=== PATIENT | female | born 1955 | race Caucasian/White ===

== ENCOUNTER 2017-01-06 17:49 | Emergency (ER) | payer MEDICAID ==
[~2017-01-06] VITALS: Ht 167.6 cm; Wt 91.2 kg
[~2017-01-06 17:49] MED LIST: ALBU18HF INH; CYCL7.5T25 PO; IBUP400T PO; LANS15TA5 PO
[2017-01-06] MEDS ORDERED: SODIUM CHLORIDE FLUSH 10ML SYR IVF ONE (18:00)
[2017-01-06] MEDS ORDERED: SODIUM CHLORIDE 0.9% 1,000ML IVBOLUS ONE (18:00)
[2017-01-06] MEDS ORDERED: FAMOTIDINE 20 MG/2 ML IVP ONE (18:00)
[2017-01-06] MEDS ORDERED: ONDANSETRON 2MG/ML, 2ML ONE (18:47)
[2017-01-06] MEDS ORDERED: FAMOTIDINE 20 MG/2 ML ONE (18:47)
[2017-01-06 18:54] LABS: ASPARTATE AMINO TRANSFERASE 6 U/L (15-37); BLOOD UREA NITROGEN 18 mg/dL (7-18)
[2017-01-06] MEDS ORDERED: ONDANSETRON 2MG/ML, 2ML IVPush ONE (19:00)
[2017-01-06] MEDS ORDERED: MAALOX/HYOSCYAMINE/LIDOCAINE 45 ML BOTTLE PO ONE (19:30)
[2017-01-06] MEDS ORDERED: MAALOX/HYOSCYAMINE/LIDOCAINE 45 ML BOTTLE ONE (19:35)
[2017-01-06 21:07] VITALS: BP 146/77
== END 2017-01-06 21:45 | disposition home or self-care (01) ==
LOC: ED 19:15
DX: K29.00 Acute gastritis without bleeding (principal); R10.11 Right upper quadrant pain; R10.13 Epigastric pain
CPT/HCPCS: 36415; 76700; 80053; 81003; 83690; 85025; 86677; 96361; 96374; 96375; 99285; J2405; J7030; S0028

== ENCOUNTER 2017-02-24 07:43 | Emergency (ER) | payer MEDICAID ==
[~2017-02-24] VITALS: Ht 167.6 cm; Wt 93.3 kg
[2017-02-24 07:47] VITALS: BP 148/83
== END 2017-02-24 08:32 | disposition home or self-care (01) ==
LOC: ED 08:15
DX: J45.909 Unspecified asthma, uncomplicated (principal); J02.9 Acute pharyngitis, unspecified; E11.9 Type 2 diabetes mellitus without complications; Z87.891 Personal history of nicotine dependence; Z85.3 Personal history of malignant neoplasm of breast
CPT/HCPCS: 93005; 99283

== ENCOUNTER 2017-06-16 02:59 | Observation (INO) | payer MEDICAID, OTHER ==
[~2017-06-16] VITALS: Ht 167.6 cm; Wt 97.6 kg
[~2017-06-16 02:59] MED LIST changes: +IBUP-1221 PO; -IBUP400T PO; -LANS15TA5 PO; +LANS15TA6 PO
[2017-06-16] MEDS ORDERED: METF500T4 PO (03:37)
[2017-06-16] MEDS ORDERED: ATOR10TA9 PO (03:38)
[2017-06-16] MEDS ORDERED: GABA-827 PO (03:39)
[2017-06-16] MEDS ORDERED: LISI2.5T PO (03:39)
[2017-06-16 03:45] LABS: HEMATOCRIT 44.8 % (34.6-47.8); WHITE BLOOD COUNT 7.6 x10^3/uL (3.4-10)
[2017-06-16 03:57] LABS: ASPARTATE AMINO TRANSFERASE 12 U/L (15-37); BLOOD UREA NITROGEN 19 mg/dL (7-18)
[2017-06-16 04:03] LABS: IS PT STATUS REG ER OR PRE ER? YES
[2017-06-16] MEDS ORDERED: ONDANSETRON 2MG/ML, 2ML IVPush ONE (05:30)
[2017-06-16] MEDS ORDERED: MORPHINE SULFATE 4 MG/ML, 1ML IVPush PRN (05:30)
[2017-06-16] MEDS ORDERED: ONDANSETRON ODT 4 MG ONE (05:38)
[2017-06-16] MEDS ORDERED: OXYcodone/APAP 5/325MG TABLET ONE (05:39)
[2017-06-16] MEDS ORDERED: OXYcodone/APAP 5/325MG TABLET PO ONE (06:00)
[2017-06-16] MEDS ORDERED: ONDANSETRON ODT 4 MG PO ONE (06:00)
[2017-06-16 08:53] VITALS: BP 123/81
[2017-06-16] MEDS ORDERED: DOCUSATE 100 MG CAPSULE PO PRN (10:00)
[2017-06-16] MEDS ORDERED: LABETALOL 5MG/ML, 20ML IVPush PRN (10:00)
[2017-06-16] MEDS ORDERED: morphine SULFATE 10 MG/ML, 1ML IVPush PRN (10:00)
[2017-06-16] MEDS ORDERED: BISACODYL 10 MG SUPP PR PRN (10:00)
[2017-06-16] MEDS ORDERED: ONDANSETRON 2MG/ML, 2ML IVPush PRN (10:00)
[2017-06-16] MEDS ORDERED: ONDANSETRON ODT 4 MG PO PRN (10:00)
[2017-06-16] MEDS ORDERED: ENALAPRILAT 1.25 MG/ML, 2ML IVPush PRN (10:00)
[2017-06-16] MEDS ORDERED: ALBUTEROL HFA 90 MCG/SPRAY INH SCH (10:00)
[2017-06-16] MEDS ORDERED: GABAPENTIN 400 MG CAPSULE ONE (10:02)
[2017-06-16] MEDS: GABAPENTIN 400 MG CAPSULE PO SCH ×3 (10:26→21:52)
[2017-06-16] MEDS: SODIUM CHLORIDE 0.9% 1,000 ML IV SCH ×2 (10:27→21:52)
[2017-06-16 10:54] LABS: IS PT STATUS REG ER OR PRE ER? NO
[2017-06-16 16:01] LABS: IS PT STATUS REG ER OR PRE ER? NO
[2017-06-16 16:59] VITALS: BP 148/78
[2017-06-16] MEDS: ACETAMINOPHEN 325 MG TABLET PO PRN ×2 (17:47→21:53)
[2017-06-16 20:32] VITALS: BP 131/78
[2017-06-16] MEDS ORDERED: ATORVASTATIN 10 MG TABLET PO SCH (21:00)
[2017-06-17 02:21] VITALS: BP 135/82
[2017-06-17 05:47] LABS: HEMATOCRIT 44.6 % (34.6-47.8); HEMOGLOBIN 15.3 g/dL (11.7-16.4); WHITE BLOOD COUNT 6.6 x10^3/uL (3.4-10)
[2017-06-17 05:53] LABS: BLOOD UREA NITROGEN 13 mg/dL (7-18)
[2017-06-17 05:57] LABS: ASPARTATE AMINO TRANSFERASE 13 U/L (15-37)
[2017-06-17] MEDS: GABAPENTIN 400 MG CAPSULE PO SCH ×3 (06:14→15:50)
[2017-06-17] MEDS: SODIUM CHLORIDE 0.9% 1,000 ML IV SCH (06:15)
[2017-06-17] MEDS: ACETAMINOPHEN 325 MG TABLET PO PRN (07:37)
[2017-06-17 07:44] VITALS: BP 123/78
[2017-06-17] MEDS ORDERED: REGADENOSON 0.4 MG/5 ML SYRINGE ONE (08:07)
[2017-06-17] MEDS ORDERED: LISINOPRIL 5 MG TABLET PO SCH (09:00)
[2017-06-17 15:07] VITALS: BP 132/80
[2017-06-17] MEDS ORDERED: FLU VACC QS2017-18 (36MOS+) UP/PF 0.5 ML IM-VACC ONE (17:00)
[2017-06-17] MEDS ORDERED: PNEUMOCOCCAL 23 VACCINE IM-VACC ONE (17:00)
== END 2017-06-17 18:00 | disposition home or self-care (01) ==
LOC: ED 06:41 → EDIP 06:42 → INTOOBSV 06:42 → ED 07:02 → 5SO 08:44
PROVIDERS: ADMIT Internal Medicine; ATTEND Internal Medicine
DX: R07.89 Other chest pain (principal); E11.42 Type 2 diabetes mellitus with diabetic polyneuropathy; E78.5 Hyperlipidemia, unspecified; E11.65 Type 2 diabetes mellitus with hyperglycemia; J44.9 Chronic obstructive pulmonary disease, unspecified; E66.9 Obesity, unspecified; Z85.3 Personal history of malignant neoplasm of breast; Z87.891 Personal history of nicotine dependence; Z82.49 Family history of ischemic heart disease and other diseases of the circulatory system; Z81.8 Family history of other mental and behavioral disorders; Z80.3 Family history of malignant neoplasm of breast; F17.200 Nicotine dependence, unspecified, uncomplicated
CPT/HCPCS: 36415; 71010; 78452; 80053; 82962; 83735; 84100; 84439; 84443; 84484; 85025; 85379; 90471; 90472; 90686; 90732; 93005; 93017; 93306; 96360; 96361; 99285; A9502; C9898; G0378; J2785; J7030; Q0162

== ENCOUNTER 2018-04-08 15:06 | Emergency (ER) | payer MEDICAID, OTHER ==
[~2018-04-08] VITALS: Ht 167.6 cm; Wt 99.4 kg
[~2018-04-08 15:06] MED LIST changes: +ATOR10TA9 PO; +GABA-827 PO; +LISI2.5T PO; +METF500T17 PO
[2018-04-08 15:16] VITALS: BP 140/85
[2018-04-08] MEDS ORDERED: KETOROLAC 30 MG/1 ML ONE (17:15)
[2018-04-08] MEDS ORDERED: KETOROLAC 30 MG/1 ML IM ONE (17:30)
== END 2018-04-08 17:29 | disposition home or self-care (01) ==
LOC: ED 17:15
DX: M54.42 Lumbago with sciatica, left side (principal); M76.62 Achilles tendinitis, left leg; E11.9 Type 2 diabetes mellitus without complications; Z85.3 Personal history of malignant neoplasm of breast
CPT/HCPCS: 72110; 73610; 96372; 99284; J1885

== ENCOUNTER 2018-05-15 12:55 | Observation (INO) | payer OTHER ==
[~2018-05-15] VITALS: Ht 167.6 cm; Wt 100.3 kg
[2018-05-15 14:00] LABS: BASOPHILS # (AUTO) 0.04 x10^3/uL (0-0.1); BASOPHILS % (AUTO) 1 % (0-1); EOSINOPHILS # (AUTO) 0.17 x10^3/uL (0-0.4); EOSINOPHILS % (AUTO) 2 % (1-7); LYMPHOCYTES % (AUTO) 33 % (22-44); MD NO; MEAN CORPUSCULAR HEMOGLOBIN 29.8 pg (27.0-34.8); MEAN CORPUSCULAR HGB CONC 33.6 g/dL (32.4-35.8); MEAN CORPUSCULAR VOLUME 88.8 fL (80-100); MEAN PLATELET VOLUME 9.5 fL (7.4-10.4); MONOCYTES # (AUTO) 0.72 x10^3/uL (0.2-0.8); MONOCYTES % (AUTO) 8 % (2-9); NEUTROPHILS # (AUTO) 5.36 x10^3/uL (1.8-6.8); NEUTROPHILS % (AUTO) 57 % (42-75); PLATELET COUNT 237 x10^3/uL (130-400); RED CELL DISTRIBUTION WIDTH 13.7 % (9.6-15.2)
[2018-05-15 14:10] LABS: INTERNATIONAL NORMALIZED RATIO 0.97 (0.93-1.1)
[2018-05-15 14:13] LABS: ANION GAP 8 mmol/L (5-15); CALCIUM 9.3 mg/dL (8.5-10.1); CHLORIDE 108 mmol/L (98-107); CREATININE 0.82 mg/dL (0.55-1.02)
[2018-05-15 14:14] LABS: ALANINE AMINOTRANSFERASE 41 U/L (12-78); ALBUMIN 4.1 g/dL (3.4-5.0)
[2018-05-15 14:16] LABS: ALKALINE PHOSPHATASE 111 U/L (45-117); BILIRUBIN,TOTAL 0.4 mg/dL (0.2-1.0); TOTAL PROTEIN 7.5 g/dL (6.4-8.2)
[2018-05-15] MEDS ORDERED: ACETAMINOPHEN 500 MG TABLET ONE (16:41)
[2018-05-15] MEDS ORDERED: ACETAMINOPHEN 500 MG TABLET PO ONE (17:00)
[2018-05-15] MEDS ORDERED: GUAIFENESIN/COD200MG-20MG/10ML LIQUID PO PRN (17:30)
[2018-05-15] MEDS ORDERED: CYCLOBENZAPRINE 10 MG TABLET PO PRN (17:30)
[2018-05-15] MEDS ORDERED: DOCUSATE 100 MG CAPSULE PO PRN (17:30)
[2018-05-15] MEDS ORDERED: ONDANSETRON 2MG/ML, 2ML IVPush PRN (17:30)
[2018-05-15] MEDS ORDERED: hydrALAzine 20 MG/ML, 1ML IVPush PRN (17:30)
[2018-05-15] MEDS ORDERED: ENOXAPARIN 40 MG/0.4 ML SQ SCH (18:00)
[2018-05-15 18:12] VITALS: BP 133/78
[2018-05-15 18:59] VITALS: BP 159/93
[2018-05-15] MEDS ORDERED: metFORMIN 500 MG TABLET PO SCH (21:00)
[2018-05-15] MEDS: ACETAMINOPHEN 325 MG TABLET PO PRN (22:31)
[2018-05-16 02:59] VITALS: BP 135/78
[2018-05-16 05:41] LABS: BASOPHILS # (AUTO) 0.03 x10^3/uL (0-0.1); BASOPHILS % (AUTO) 0 % (0-1); EOSINOPHILS # (AUTO) 0.17 x10^3/uL (0-0.4); EOSINOPHILS % (AUTO) 3 % (1-7); LYMPHOCYTES % (AUTO) 40 % (22-44); MD NO; MEAN CORPUSCULAR HEMOGLOBIN 29.9 pg (27.0-34.8); MEAN CORPUSCULAR HGB CONC 33.8 g/dL (32.4-35.8); MEAN CORPUSCULAR VOLUME 88.4 fL (80-100); MEAN PLATELET VOLUME 10.7 fL (7.4-10.4); MONOCYTES # (AUTO) 0.63 x10^3/uL (0.2-0.8); MONOCYTES % (AUTO) 9 % (2-9); NEUTROPHILS # (AUTO) 3.26 x10^3/uL (1.8-6.8); NEUTROPHILS % (AUTO) 48 % (42-75); PLATELET COUNT 195 x10^3/uL (130-400); RED BLOOD COUNT 5.07 x10^6/uL (3.82-5.3); RED CELL DISTRIBUTION WIDTH 13.8 % (9.6-15.2)
[2018-05-16 05:48] LABS: ANION GAP 7 mmol/L (5-15); CALCIUM 8.9 mg/dL (8.5-10.1); CHLORIDE 106 mmol/L (98-107)
[2018-05-16 06:02] LABS: CHOL/HDL RATIO 4.5; CHOLESTEROL, TOTAL 176 mg/dL (140-239); CREATININE 0.73 mg/dL (0.55-1.02); HDL CHOL % 22 % (28-40); HDL CHOLESTEROL (DIRECT) 39 mg/dL (40-60); LDL CHOLESTEROL,CALCULATED 82 mg/dL (54-169); LDL/HDL RATIO 2.1 (0.5-3.0); TRIGLYCERIDES 276 mg/dL (50-200); VLDL CHOLESTEROL 55 mg/dL (0-25)
[2018-05-16 06:04] LABS: HEMOGLOBIN A1C 8.2 % (4.2-6.3)
[2018-05-16 07:04] VITALS: BP 161/88
[2018-05-16] MEDS ORDERED: metFORMIN 500 MG TABLET PO SCH ×2 (10:00→21:00)
[2018-05-16] MEDS: ACETAMINOPHEN 325 MG TABLET PO PRN (11:00)
[2018-05-16] MEDS: INSULIN LISPRO 100 UNITS/ML, PEN SQ-INSULIN SCH ×2 (12:08→16:37)
[2018-05-16 13:00] VITALS: BP 123/79
[2018-05-16] MEDS ORDERED: ATOR40TA78 PO (15:24)
[2018-05-16] MEDS ORDERED: METF500T17 PO (15:24)
[2018-05-16] MEDS ORDERED: ASPI-621 PO (15:24)
== END 2018-05-16 17:17 | disposition home or self-care (01) ==
LOC: ED 16:51 → EDIP 16:55 → INTOOBSV 16:55 → 4WST 17:42 → DCLOUNGE 05-16 16:44
PROVIDERS: ADMIT Internal Medicine; ATTEND Internal Medicine
DX: G45.9 Transient cerebral ischemic attack, unspecified (principal); E11.42 Type 2 diabetes mellitus with diabetic polyneuropathy; E11.65 Type 2 diabetes mellitus with hyperglycemia; E78.5 Hyperlipidemia, unspecified; H91.92 Unspecified hearing loss, left ear; J45.20 Mild intermittent asthma, uncomplicated; Z79.84 Long term (current) use of oral hypoglycemic drugs; Z82.49 Family history of ischemic heart disease and other diseases of the circulatory system; Z85.3 Personal history of malignant neoplasm of breast; Z87.11 Personal history of peptic ulcer disease; Z87.891 Personal history of nicotine dependence; Z90.12 Acquired absence of left breast and nipple
CPT/HCPCS: 0399T; 36415; 70450; 70551; 80048; 80053; 80061; 82962; 83036; 84443; 85025; 85610; 93005; 93306; 93880; 96372; 97161; 99285; G0378; G8978; G8979; G8980; J1650; J1815

== ENCOUNTER 2018-05-25 14:29 | Emergency (ER) | payer SELFPAY ==
[~2018-05-25] VITALS: Ht 167.6 cm; Wt 99.0 kg
[~2018-05-25 14:29] MED LIST changes: +ASPI-621 PO; +ATOR40TA78 PO
[2018-05-25] MEDS ORDERED: HYDROcodone/APAP 5/325 TABLET ONE (15:42)
[2018-05-25 15:46] LABS: ALANINE AMINOTRANSFERASE 36 U/L (12-78); ALBUMIN 3.6 g/dL (3.4-5.0); ANION GAP 8 mmol/L (5-15); CALCIUM 9.1 mg/dL (8.5-10.1); CHLORIDE 107 mmol/L (98-107); CREATININE 1.06 mg/dL (0.55-1.02)
[2018-05-25 15:48] LABS: ALKALINE PHOSPHATASE 107 U/L (45-117); BILIRUBIN,TOTAL 0.3 mg/dL (0.2-1.0); TOTAL PROTEIN 6.9 g/dL (6.4-8.2)
[2018-05-25] MEDS ORDERED: HYDROcodone/APAP 5/325 TABLET PO ONE (16:00)
[2018-05-25 16:08] LABS: BASOPHILS # (AUTO) 0.02 x10^3/uL (0-0.1); BASOPHILS % (AUTO) 0 % (0-1); EOSINOPHILS # (AUTO) 0.15 x10^3/uL (0-0.4); EOSINOPHILS % (AUTO) 2 % (1-7); LYMPHOCYTES # (AUTO) 1.81 x10^3/uL (1-3.4); LYMPHOCYTES % (AUTO) 20 % (22-44); MEAN CORPUSCULAR HEMOGLOBIN 29.8 pg (27.0-34.8); MEAN CORPUSCULAR HGB CONC 33.8 g/dL (32.4-35.8); MEAN CORPUSCULAR VOLUME 88.2 fL (80-100); MEAN PLATELET VOLUME 10.3 fL (7.4-10.4); MONOCYTES % (AUTO) 8 % (2-9); NEUTROPHILS # (AUTO) 6.36 x10^3/uL (1.8-6.8); NEUTROPHILS % (AUTO) 70 % (42-75); PLATELET COUNT 219 x10^3/uL (130-400); RED BLOOD COUNT 5.34 x10^6/uL (3.82-5.3); RED CELL DISTRIBUTION WIDTH 13.5 % (9.6-15.2)
[2018-05-25 16:09] LABS: MD SCAN
[2018-05-25 16:37] VITALS: BP 128/74
== END 2018-05-25 16:59 | disposition home or self-care (01) ==
LOC: ED 15:03
DX: S16.1XXA Strain of muscle, fascia and tendon at neck level, initial encounter (principal); S09.8XXA Other specified injuries of head, initial encounter; S60.212A Contusion of left wrist, initial encounter; S05.8X2A Other injuries of left eye and orbit, initial encounter; W19.XXXA Unspecified fall, initial encounter; Y93.01 Activity, walking, marching and hiking; Y92.89 Other specified places as the place of occurrence of the external cause; Y99.8 Other external cause status
CPT/HCPCS: 36415; 70450; 70486; 72125; 80053; 85025; 93005; 99285